=== PATIENT | female | born 1965 | race Caucasian/White ===

== ENCOUNTER → 2019-09-14 11:17 | Outpatient (BNVA) | payer BC, SELFPAY | PROVIDERS: PCP Nurse Practitioner Family; Visit Provider Nurse Practitioner Family | DX: R30.0 Dysuria (principal); M54.5 Low back pain | CPT/HCPCS: 74018; 81003 ==

== ENCOUNTER → 2019-11-27 11:34 | Outpatient (BNVA) | payer BC, SELFPAY | PROVIDERS: PCP Nurse Practitioner Family; Visit Provider Nurse Practitioner Family | DX: U07.1 COVID-19 (principal) | CPT/HCPCS: 87635 ==

== ENCOUNTER → 2020-01-22 11:00 | Outpatient (BNVA) | payer BC, SELFPAY | PROVIDERS: PCP Nurse Practitioner Family | DX: I10 Essential (primary) hypertension (principal); E03.8 Other specified hypothyroidism; F32.1 Major depressive disorder, single episode, moderate | CPT/HCPCS: 80053; 80061; 84443; 85025 ==

== ENCOUNTER → 2021-02-14 18:10 | Outpatient (BNVA) | payer BC, SELFPAY | PROVIDERS: PCP Nurse Practitioner Family; Visit Provider Family Medicine | DX: K21.9 Gastro-esophageal reflux disease without esophagitis (principal); E03.8 Other specified hypothyroidism; I10 Essential (primary) hypertension | CPT/HCPCS: 80053; 80061; 84443; 85025 ==

== ENCOUNTER → 2022-01-04 12:13 | Outpatient (BNVA) | payer BC, SELFPAY | PROVIDERS: PCP Family Medicine; Visit Provider Family Medicine | DX: N39.0 Urinary tract infection, site not specified (principal) | CPT/HCPCS: 81003; 87077; 87086; 87184 ==

== ENCOUNTER → 2022-02-16 10:57 | Outpatient (BNVA) | payer BC, SELFPAY | PROVIDERS: PCP Family Medicine; Visit Provider Family Medicine | DX: R30.0 Dysuria (principal) | CPT/HCPCS: 81000 ==

== ENCOUNTER → 2022-02-25 12:17 | Outpatient (BNVA) | payer BC, SELFPAY | PROVIDERS: PCP Family Medicine; Visit Provider Registered Nurse Neonatal Intensive Care | DX: N39.0 Urinary tract infection, site not specified (principal) | CPT/HCPCS: 81000; 87077; 87086; 87184 ==

== ENCOUNTER → 2022-03-28 16:53 | Outpatient (BNVA) | payer BC, SELFPAY | PROVIDERS: PCP Family Medicine; Visit Provider Nurse Practitioner Family | DX: R30.0 Dysuria (principal); N39.0 Urinary tract infection, site not specified | CPT/HCPCS: 81003; 87077; 87086; 87184 ==

== ENCOUNTER → 2022-07-23 12:06 | Outpatient (BNVA) | payer BC, SELFPAY | PROVIDERS: PCP Family Medicine; Visit Provider Nurse Practitioner Family | DX: N39.0 Urinary tract infection, site not specified (principal); N39.490 Overflow incontinence; E03.8 Other specified hypothyroidism; I10 Essential (primary) hypertension; F32.1 Major depressive disorder, single episode, moderate | CPT/HCPCS: 80053; 80061; 81003; 84443; 85025 ==

== ENCOUNTER → 2022-08-07 12:04 | Outpatient (BNVA) | payer BC, SELFPAY | PROVIDERS: PCP Family Medicine; Visit Provider Nurse Practitioner Family | DX: R39.9 Unspecified symptoms and signs involving the genitourinary system (principal) | CPT/HCPCS: 81003 ==

== ENCOUNTER → 2022-11-08 08:41 | Outpatient (BNVA) | payer BC, SELFPAY | PROVIDERS: PCP Family Medicine; Visit Provider Nurse Practitioner Family | DX: N39.0 Urinary tract infection, site not specified (principal) | CPT/HCPCS: 81000; 81003 ==

== ENCOUNTER → 2022-12-21 10:40 | Outpatient (BNVA) | payer BC, SELFPAY | PROVIDERS: PCP Family Medicine; Visit Provider Nurse Practitioner Family | DX: J02.9 Acute pharyngitis, unspecified (principal) | CPT/HCPCS: 87071; 87880 ==

== ENCOUNTER 2023-03-11 08:22 | Emergency (ER) | payer BC, SELFPAY ==
[2023-03-11 08:32] VITALS: BP 182/114; PULSE 68; TEMP 36.6; O2SAT 99; BMI 42.4
--- NOTE | 2023-03-11 08:51 | W.ED.CHESTPA ---
HPI - Chest Pain General: Chief Complaint: Chest Pain Stated Complaint: pain right side Time Seen by Provider: 03/11/23 08:25 Source: patient Mode of arrival: ambulatory History of Present Illness: 57-year-old female presents emergency room complaining of right flank pain. It began after she bent over to pick something up off the floor is continued throughout the night and worsened this morning exacerbated by moving and improved somewhat by rest. She did states she stumbled a bit manage to catch herself did not really hit anything but felt a straining sensation in her right side when she caught her self as she went down with her right or she did not injure anything else when she fell to seem to exacerbate this right side pain. She denies any dysuria urgency or frequency no hematochezia melena hematemesis coffee-ground emesis no vomiting at all. She did recently recover from a viral gastroenteritis that included nausea vomiting and diarrhea but that has for the most part resolved she is also recently had UTI and has infrequently but has no symptoms at this time Onset (ago): day(s) (1) Pain location: right chest (Lower ribs at the anterior axillary line) Quality: sharp Relieving factors: nothing Associated symptoms: Deny abdominal pain, diaphoresis, dyspnea, fever(s), leg edema, nausea, palpitations, sense of impending doom, syncope or vomiting Review of Systems Const: Denies: fever(s) or diaphoresis Card: Denies: palpitations or syncope Resp: Denies: dyspnea GI: Denies: abdominal pain, nausea or vomiting : Denies: dysuria, urinary frequency or urinary urgency Musc: Denies: neck pain or back pain Skin/Breast: Denies: rash PENDING SALE TO [facility] ED PFSH: Medical History Anxiety Depression GERD (gastroesophageal reflux disease) Hypertension Hypothyroid Obese Osteoarthritis Surgical History Hx of breast augmentation Hx of dilation and curettage Family History Other No pertinent family history Social History Smoking and tobacco/nicotine status: never used tobacco/nicotine Second hand smoke exposure: No Alcohol intake: never Substance/Drug Use: never Adopted: No Lives independently: Yes Household members: children Housing: House Marital status: / Number of children: 2 service: No Current occupational status: employed Current occupation: teacher; [employer] Current gender identity: Female Special jessica needs: No Agree to transfusion: Yes Physical Exam Const: COMMON NORMALS: no acute distress GENERAL APPEARANCE: cooperative and comfortable ORIENTATION/CONSCIOUSNESS: Yes awake, Yes oriented to person, Yes oriented to place and Yes oriented to time HENMT: COMMON NORMALS: normocephalic, atraumatic and hearing grossly normal bilaterally HEAD & SCALP: normocephalic and atraumatic Resp: COMMON NORMALS: normal respiratory effort, No retractions, No use of accessory muscles and clear to auscultation bilaterally AUSCULTATION: clear to auscultation bilaterally Cardio: COMMON NORMALS: regular rate, regular rhythm and No murmurs present (Cardio) RATE: regular rate RHYTHM: regular rhythm GI: COMMON NORMALS: Soft to palpation and No hepatosplenomegaly present AUSCULTATION: Yes normoactive bowel sounds PALPATION: Yes Soft to palpation, No Tenderness to palpation present (GI), No Guarding due to palpation present (GI) and Yes No hepatosplenomegaly present Extremity: COMMON NORMALS: normal to inspection, capillary refill normal, no clubbing, cyanosis or edema, no calf tenderness and no pedal edema Neuro: SENSORIUM/ORIENTATION: Yes oriented to person, Yes oriented to place and Yes oriented to time Skin: COMMON NORMALS: no rashes or lesions noted GENERAL SKIN EXAM: no rashes or lesions noted Course Vital Signs: Vital signs: Vital Signs Temperature 98 F 03/11/23 08:32 Pulse Rate 68 03/11/23 08:32 Blood Pressure 144/90 03/11/23 10:30 Pulse Oximetry 99 03/11/23 08:32 Oxygen Delivery Me thod Room Air 03/11/23 08:32 MDM - Chest Pain Medical Decision Making Labs and imaging and EKG reviewed no acute changes on EKG no fractures no history of significant trauma. Suspect this is musculoskeletal is reproducible with change in position discharged home on tizanidine continue diclofenac previously prescribed Medical Records I reviewed the patient's medical records. Lab Data I reviewed the patient's lab results. 03/11/23 09:18 03/11/23 09:18 Radiology Impressions Ribs X-Ray 03/11/23 09:22 IMPRESSION: No acute findings. Laboratory Results WBC 5.39 10^3/uL (3.29-11.43) 03/11/23 09:18 RBC 3.99 10^6/uL (3.85-5.65) 03/11/23 09:18 Hgb 12.30 g/dL (11.27-16.99) 03/11/23 09:18 Hct 37.6 % (36-47) 03/11/23 09:18 MCV 94.2 fl (85-98) 03/11/23 09:18 MCH 30.8 pg (27-33) 03/11/23 09:18 MCHC 32.7 g/dL (30-55) 03/11/23 09:18 RDW 12.9 % (12.1-15.1) 03/11/23 09:18 Plt Count 256 10^3/cmm (157-399) 03/11/23 09:18 MPV 10.2 fL (7.4-10.4) 03/11/23 09:18 Neut % (Auto) 50.4 % 03/11/23 09:18 Lymph % (Auto) 37.1 % 03/11/23 09:18 [facility] % (Auto) 8.7 % 03/11/23 09:18 Eos % (Auto) 3.2 % 03/11/23 09:18 Baso % (Auto) 0.6 % 03/11/23 09:18 Neut # (Auto) 2.72 10^3/uL (1.8-7.7) 03/11/23 09:18 Lymph # (Auto) 2.0 10^3/uL (0.8-4.8) 03/11/23 09:18 [facility] # (Auto) 0.5 10^3/uL (0.2-0.9) 03/11/23 09:18 Eos # (Auto) 0.2 10^3/uL (0.0-0.8) 03/11/23 09:18 Baso # (Auto) 0.0 10^3/uL (0.0-0.1) 03/11/23 09:18 Nucleated RBC % (auto) 0 % 03/11/23 09:18 Nucleated RBCs # 0.0 /100WBC 03/11/23 09:18 Sodium 138 mmol/L (136-145) 03/11/23 09:18 Potassium 3.5 mmol/L (3.5-5.1) 03/11/23 09:18 Chloride 103 mmol/L (98-107) 03/11/23 09:18 Carbon Dioxide 23 mmol/L (22-29) 03/11/23 09:18 Anion Gap 15.4 (5-19) 03/11/23 09:18 BUN 17 mg/dL (6-20) 03/11/23 09:18 Creatinine 0.9 mg/dL (0.5-0.9) 03/11/23 09:18 GFR Calculation 64.5 mL/min (90-130) L 03/11/23 09:18 Glucose 113 mg/dL (65-115) 03/11/23 09:18 Calculated Osmolality 288 mOsm/kg (285-295) 03/11/23 09:18 Calcium 9.3 mg/dL (8.5-10.5) 03/11/23 09:18 Total Bilirubin 0.4 mg/dL (0.15-1.2) 03/11/23 09:18 AST 42 U/L (0-32) H 03/11/23 09:18 ALT 49 U/L (0-33) H 03/11/23 09:18 Alkaline Phosphatase 105 U/L (35-105) 03/11/23 09:18 Total Protein 7.6 g/dL (6.6-8.7) 03/11/23 09:18 Albumin 4.3 g/dL (3.5-5.2) 03/11/23 09:18 Globulin 3.3 g/dL (1.3-4.6) 03/11/23 09:18 Urine Color Yellow (Yellow) 03/11/23 10:24 Urine Appearance Clear (CLEAR) 03/11/23 10:24 Urine pH 5 (5-7) 03/11/23 10:24 Ur Specific [place] 1.020 (1.005-1.030) 03/11/23 10:24 Urine Protein Trace (Negative) 03/11/23 10:24 Urine Glucose (UA) Norm (Normal) 03/11/23 10:24 Urine Ketones 1+ (Negative) H 03/11/23 10:24 Urine Blood Neg (Negative) 03/11/23 10:24 Urine Nitrate Negative (Negative) 03/11/23 10:24 Urine Bilirubin 1+ (Negative) H 03/11/23 10:24 Urine Urobilinogen 1 mg/dL (Negative) H 03/11/23 10:24 Ur Leukocyte Esterase Negative (Negative) 03/11/23 10:24 Urine RBC Rare /hpf (0-2) 03/11/23 10:24 Urine WBC 5-10 /hpf (0-5) H 03/11/23 10:24 Ur Squamous Epith Cells 5-10 /hpf (0-5) H 03/11/23 10:24 Amorphous Sediment Not Reportable 03/11/23 10:24 Urine Bacteria 1+ /hpf (NONE) H 03/11/23 10:24 Hyaline Casts 5-10 /lpf H 03/11/23 10:24 Urine Mucus 2+ /hpf 03/11/23 10:24 All radiology interpretation(s) finalized by discharge Discharge Plan Discharge Patient Disposition: Home Clinical Impression: Muscle strain Condition: Stable Prescriptions: New tizanidine 4 mg tablet 4 mg PO Q6H PRN (Reason: muscle spasticity) Qty: 20 0RF Rx Instructions: do not exceed 3 doses per 24 hrs No Action brimonidine 0.15 % drops 1 drop ophthalmic (eye) BID ketoconazole 2 % cream 1 applic topical BID Qty: 60 2RF Rx Instructions: Apply twice daily to red scaly areas on face x 4 weeks then once daily prn for flares ketoconazole 2 % shampoo 1 applic topical .2 x weekly Qty: 120 3RF Rx Instructions: Lather into scalp 2 times weekly. Allow to sit on scalp for 5 minutes before rinsing. diclofenac sodium [Voltaren Arthritis Pain] 1 % gel 2 g topical QID Qty: 100 0RF Rx Instructions: apply to knee amoxicillin 875 mg tablet 875 mg PO BID 10 Days Qty: 20 0RF fluconazole 150 mg tablet 150 mg PO Q3D Qty: 2 0RF Rx Instructions: may repeat second dose 72 hrs after first dose if symptoms persist ciprofloxacin HCl [Cipro] 500 mg tablet 500 mg PO BID Qty: 20 0RF levothyroxine 100 mcg tablet See Rx Instructions .ROUTE .COMPLEX Qty: 90 1RF Dose Instruction: TAKE ONE TABLET BY MOUTH EVERY DAY Rx Instructions: TAKE ONE TABLET BY MOUTH EVERY DAY atenolol 50 mg tablet See Rx Instructions .ROUTE .COMPLEX Qty: 90 1RF Dose Instruction: TAKE ONE TABLET BY MOUTH DAILY Rx Instructions: TAKE ONE TABLET BY MOUTH DAILY lisinopril 20 mg tablet See Rx Instructions .ROUTE .COMPLEX Qty: 180 1RF Dose Instruction: TAKE ONE TABLET BY MOUTH TWICE DAILY Rx Instructions: TAKE ONE TABLET BY MOUTH TWICE DAILY escitalopram oxalate 20 mg tablet See Rx Instructions .ROUTE .COMPLEX Qty: 90 1RF Dose Instruction: TAKE ONE TABLET BY MOUTH EVERY DAY Rx Instructions: TAKE ONE TABLET BY MOUTH EVERY DAY diclofenac sodium 75 mg tablet,delayed release (DR/EC) See Rx Instructions .ROUTE .COMPLEX Qty: 60 5RF Dose Instruction: TAKE ONE TABLET BY MOUTH TWICE DAILY NEEDED FOR pain Rx Instructions: TAKE ONE TABLET BY MOUTH TWICE DAILY NEEDED FOR pain nitrofurantoin macrocrystal 100 mg capsule 100 mg PO BID 10 Days Qty: 20 0RF Rx Instructions: must administer with a meal/food Discharge Orders: Discharge ED (Routine); Ordered 03/11/23 Ordered By: Bj Otto Referrals: Syeda Powell FNP [Primary Care Provider] - Patient Instructions: Opioid Safety, Pain Management Activity Restrictions/Additional Instructions: Thank you for choosing [facility] for your healthcare needs today. Please realize this is an emergency room and that we are providing you with a medical screening exam and this may not be complete and all inclusive of all the testing and or work up that you may need to determine your ailment or severity of your illness. It is very important that you follow up as instructed or that you return to the Emergency Department should you have concerns or if your condition changes or worsens in any way. If not improving follow-up with your primary care doctor Coding Level of Care Code ED Recyclable Products Sorter for Dakota Santiago
[2023-03-11 09:10] VITALS: BP 158/85
[2023-03-11] MEDS: ketorolac 60 mg/2 mL INJ IM (09:17)
--- NOTE | 2023-03-11 09:22 | XRR_ITS ---
PROCEDURE INFORMATION: Exam: XR Right Ribs with PA Chest Exam date and time: 03/11/2023 9:34 AM Age: 57 years old Clinical indication: Pain; Other: RT ribs TECHNIQUE: Imaging protocol: Radiologic exam of the right ribs with PA chest. Views: 3 views COMPARISON: CR XR KUB [id number] 09/14/2019 11:29 AM FINDINGS: Lungs: The lung parenchyma is clear. Pleural spaces: No pneumothorax. No pleural effusion. Heart/Mediastinum: The cardiomediastinal silhouette is within normal limits. Bones/joints: Unremarkable. No displaced rib fractures identified. XR/XR ribs RT mn 3V w CXR1V [id number] IMPRESSION: No acute findings.
[2023-03-11 09:25] LABS: Basophils % 0.6 %; Eosinophils # 0.2 10^3/uL (0.0-0.8); Eosinophils % 3.2 %; Hematocrit 37.6 % (36-47); Lymphocytes % 37.1 %; Mean Corpuscular HGB Conc 32.7 g/dL (30-55); Mean Corpuscular Hemoglobin 30.8 pg (27-33); Mean Corpuscular Volume 94.2 fl (85-98); Mean Platelet Volume 10.2 fL (7.4-10.4); Monocytes # 0.5 10^3/uL (0.2-0.9); Monocytes % 8.7 %; Neutrophils # 2.72 10^3/uL (1.8-7.7); Neutrophils % 50.4 %; Nucleated Red Blood Cells % 0 %; Platelet Count 256 10^3/cmm (157-399); Red Blood Count 3.99 10^6/uL (3.85-5.65); Red Cell Distribution Width 12.9 % (12.1-15.1); White Blood Count 5.39 10^3/uL (3.29-11.43)
[2023-03-11 09:42] LABS: Chloride 103 mmol/L (98-107); Potassium 3.5 mmol/L (3.5-5.1); Sodium 138 mmol/L (136-145)
[2023-03-11 09:55] LABS: Alanine Aminotransferase 49 U/L (0-33); Albumin Level 4.3 g/dL (3.5-5.2); Alkaline Phosphatase 105 U/L (35-105); Anion Gap 15.4 (5-19); Aspartate Amino Transferase 42 U/L (0-32); Blood Urea Nitrogen 17 mg/dL (6-20); Calcium 9.3 mg/dL (8.5-10.5); Carbon Dioxide 23 mmol/L (22-29); Globulin 3.3 g/dL (1.3-4.6); Glomerular Filtration Rate 64.5 mL/min (90-130); Glucose 113 mg/dL (65-115); Osmolality Calculated 288 mOsm/kg (285-295); Total Bilirubin 0.4 mg/dL (0.15-1.2); Total Protein 7.6 g/dL (6.6-8.7)
[2023-03-11 10:30] VITALS: BP 144/90
[2023-03-11 10:59] LABS: Add Urine Microscopic? YES; Bilirubin Urine 1+ (Negative); Blood Urine Neg (Negative); Glucose Urine UA Norm (Normal); Ketones Urine 1+ (Negative); Leukocyte Esterase Urine Negative (Negative); Nitrate Urine Negative (Negative); Protein Urine Trace (Negative); Urine Appearance Clear (CLEAR); Urine Color Yellow (Yellow); Urobilinogen Urine 1 mg/dL (Negative); pH Urine 5 (5-7)
[2023-03-11 11:00] LABS: Add Urine Culture? No; Bacteria Urine 1+ /hpf; Mucus Urine 2+ /hpf; RBC Urine RARE /hpf (0-2)
== END 2023-03-11 11:42 | disposition home or self-care (01) ==
PROVIDERS: Emergency Provider Family Medicine; PCP Nurse Practitioner Family
DX: S29.011A Strain of muscle and tendon of front wall of thorax, initial encounter (principal); I10 Essential (primary) hypertension; X50.1XXA Overexertion from prolonged static or awkward postures, initial encounter
CPT/HCPCS: 36415; 71101; 80053; 81001; 85025; 96372; 99284; J1885

== ENCOUNTER → 2023-04-16 11:35 | Outpatient (BNVA) | payer BC, SELFPAY | PROVIDERS: PCP Nurse Practitioner Family; Visit Provider Nurse Practitioner Family | DX: N39.0 Urinary tract infection, site not specified (principal); Z87.440 Personal history of urinary (tract) infections | CPT/HCPCS: 81000; 87077; 87086; 87184 ==

== ENCOUNTER → 2023-07-15 09:26 | Outpatient (BNVA) | payer BC, SELFPAY | PROVIDERS: PCP Nurse Practitioner Family; Visit Provider Nurse Practitioner Family | DX: J02.9 Acute pharyngitis, unspecified (principal) | CPT/HCPCS: 87071; 87880 ==

== ENCOUNTER → 2024-01-21 09:50 | Outpatient (BNVA) | payer BC, SELFPAY | PROVIDERS: PCP Nurse Practitioner Family; Visit Provider Nurse Practitioner Family | DX: I10 Essential (primary) hypertension (principal) | CPT/HCPCS: 80053; 80061; 84443; 85025 ==

== ENCOUNTER 2024-12-26 17:16 | Emergency (ER) | payer BC, SELFPAY ==
[2024-12-26 17:16] VITALS: BP 119/97; PULSE 66; RESP 18; TEMP 36.5; O2SAT 100; BMI 35.7
--- OUTSIDE RECORDS SUMMARY | 2024-12-26 17:19 | XMS_ITS | Patient Health Record ---
Author Organization [facility] Address [address] [place] [address] Care Team Providers Care Instructional Design Consultant Name Role Phone Sherry BROWN Syeda Primary Care Provider Jean Cabrera Unavailable [phone] Ej Anand Unavailable Unavailable Chelita Liang Unavailable [phone] Allergies Allergen (clinical drug ingredient) Drug/Non Drug Allergy documented on EMR Reaction Allergy Type Onset Date Status Substance with sulfonamide structure and antibacterial mechanism of action (substance) sulfa drugs Unknown Drug Allergy Active Reason For Referral No Information Medications Medication SIG (Take, Route, Frequency, Duration) Notes Start Date End Date Status Aspirin 81 81 MG Tablet Delayed Release 1 tablet Orally Once a day *please review for potential update for e-prescription and drug interaction check* Active Atenolol 50 MG Tablet 1 tablet Orally Once a day in the evening Active methylPREDNISolone 4 MG Tablet Therapy Pack as directed Orally 01/09/2024 Active Levothyroxine Sodium 100 MCG Tablet 1 tablet in the morning on an empty stomach Orally Once a day Active Ondansetron 4 MG Tablet Disintegrating 1 tablet on the tongue and allow to dissolve Orally every 6 hrs as needed 01/09/2024 Active Lisinopril 20 MG Tablet 1 tablet Oral Once a day Active Escitalopram Oxalate 20 MG Tablet 1 tablet Orally Once a day Active Latanoprost 0.005 % Emulsion 1 null into affected eye in the evening Ophthalmic Once a day Active Meclizine HCl 25 MG Tablet 1 tablet as needed Orally every 12 hrs 01/09/2024 Active Pepcid 20 MG Tablet 1 tablet at bedtime as needed Orally Once a day Active Immunizations Vaccine Route Administration Date Status Comme nts Flucelvax Trivalent, Syringe 0.5 mL, PF Unknown 024 Refused Social History Tobacco Use: Social History Observation Description Date Details (start date - stop date) Never Smoker NA - NA Social History Depression Screening Social Info Question Answer Notes PHQ-9 Little interest or pleasure in doing thin gs Not at all Feeling down, depressed, or hopeless Not at all Trouble falling or staying asleep, or sleeping t oo much Not at all Feeling tired or having little energy Not at all Poor appetite or overeating Not at all Feeling bad about yourself, or that you are a failure, or have let yourself or your family down Not at all Trouble concentrating on thi ngs, such as reading the newspaper or watching television Not at all Moving or speaking so slowly that other people could have noticed. Or the opposite ? being so fidgety or restless that you have been moving around a lot more than usual Not at all Thoughts that you would be b edd off , or of hurting yourself in some way Not at all Total Score 0 Tobacco Use: Social Info Question Answer Notes Tobacco Control (Standard) Tobacco use: Nonsmoker Additional Details Category Social Info Options Details zzMigrated Social History Drugs/Alcohol: (Alcohol Screen (Audit-C)):Did you have a drink containing alcohol in the past year?: No, Points: 0, Interpretation: Negative ;(Caffeine):Intake: none ; Tobacco Use: (Tobacco Use/Smoking):Are you a:: never smoker ; Section Notes: negative for alcohol negative for caffeine PHQ9-01/09/24 PHQ9 negative for alcohol negative for caffeine Problems Problem Type SNOMED Code ICD Code Onset Dates Problem Status W/U Status Risk Notes Problem Palpitations (22221014) Palpitations (R00.2) Active confirmed [id number] nomed Description:P alpitations Problem Ventricular premature depolarization (729601577) Ventricular premature depolarization (I49.3) Active confirmed [id number] nomed Description:V entricular premature complex Problem Essential hypertension (29361254) Essential primary hypertension (I10) Active confirmed [id number] nomed Description:E ssential hypertension Vital Signs Heart Rate 76 /min 01/09/2024 Lying BP: 124/7 0, Sitting BP: 122/76, Standing BP: 118/72 Temperature 98.2 degrees Fahrenheit 01/09/2024 Lyin g BP: 124/70, Sitting BP: 122/76, Standing BP: 118/72 Respiratory Rate 20 /min 01/09/2024 Lying BP: 1 24/70, Sitting BP: 122/76, Standing BP: 118/72 Oximetry 97 % 01/09/2024 Lying BP: 124/7 0, Sitting BP: 122/76, Standing BP: 118/72 Blood pressure diastolic 76 mm Hg 01/09/2024 Lyi ng BP: 124/70, Sitting BP: 122/76, Standing BP: 118/72 Weight-kg 117.03 kg 01/09/2024 Lying BP: 124/7 0, Sitting BP: 122/76, Standing BP: 118/72 Height 66 in 01/09/2024 Lying BP: 124/7 0, Sitting BP: 122/76, Standing BP: 118/72 Blood pressure systolic 124 mm Hg 01/09/2024 Lyin g BP: 124/70, Sitting BP: 122/76, Standing BP: 118/72 Weight 258 lbs 01/09/2024 Lying BP: 124/7 0, Sitting BP: 122/76, Standing BP: 118/72 BMI 41.64 kg/m2 01/09/2024 Lying BP: 124/7 0, Sitting BP: 122/76, Standing BP: 118/72 Encounters Encounter Location Date Provider Diagnosis [facility] Office [address] [place] [id number] 01/09/2024 Chelita Liang Dizziness R42 ; Nausea R11.0 ; Depression screen Z13.31 ; Encounter for immunization Z23 and Immunization not carried out because of patient refusal Z28.21 Assessments Encounter Date Diagnosis (ICD Code) Assessment Notes Treatment Notes Treatment Clinical Notes Section Notes 01/09/2024 Nausea (ICD-10 - R11.0) 01/09/2024 Dizziness (ICD-10 - R42) Recheck next week here or with PCP. 01/09/2024 Depression screen (ICD-10 - Z13.31) 01/09/2024 Encounter for immunization (ICD-10 - Z23) 01/09/2024 Immunization not carried out because of patient refusal (ICD-10 - Z28.21) Plan Of Treatment No Information Insurance Providers Payer Name Payer Address Payer Phone Subscriber Number Group Number Insured Name Patient Relationship to Insured Coverage Start Date Coverage End Date [facility] [employer] [address] [place] [phone] [id number] LIVIA NEWMAN Self - patient is the insured 0 Medications Administered Medication Instructions Date of Administration Dosage Notes Ondansetron HCl 01/09/2024 4 mg [id number] Patient tolerated well. Medical (General) History Medical History History ICD Code Hypertension Thyroid Surgical History Surgery Date(Month/Year) D&C Breast Reduction
--- OUTSIDE RECORDS SUMMARY | 2024-12-26 17:19 | XMS_ITS | Clinical Summary ---
Author Organization [facility] Address [address] [place] [address] Phone Care Team Providers Care Rfid Specialist Name Role Phone Unavailable Primary Care Provider Unavailabl e Social History Tobacco Use Types Packs/Day Years Used Date Smoking Tobacco: Never Assessed Comments Unknown Sex and Gender Information Value Date Recorded Sex Assigned at Not on file Legal Sex Female 8:39 AM [employer] Gender Identity Not on file Sexual Orientation Not on file Plan of Treatment Health Maintenance Due Date Last Done Comments Colonoscopy Every 6 Months 1965 Colorectal Cancer Screening Annual FOBT/FIT Test 03/27 Colorectal Cancer Screening Cologuard 1965 Colorectal Cancer Screening Flex Sigmoidoscopy 966 Annual Depression Screening 1976 Annual Physical 1983 Hepatitis C Antibody Screen 1983 DTap/Tdap/Td Vaccines (1 - Tdap) 1984 Cervical Cancer Screening 1986 Mammogram 2005 Colorectal CA Screen 10 Year Colonoscopy 2010 Colorectal Cancer Screening 2010 Pneumococcal Vaccine Age 50+ (1 of 1 - PCV) 2015 Zoster Vaccine (Shingles) (1 of 2) 2015 Flu Vaccine (#1) 11/16/2024 Influenza Vaccine 11/16/2024 Insurance [facility]
--- NOTE | 2024-12-26 17:26 | CTR_ITS ---
PROCEDURE INFORMATION: Exam: CT Abdomen And Pelvis With Contrast Exam date and time: 12/26/2024 6:05 PM Age: 59 years old Clinical indication: Abdominal pain; Generalized; Additional info: Lower abd pain, profuse diarrhea TECHNIQUE: Imaging protocol: Computed tomography of the abdomen and pelvis with contrast. Radiation optimization: All CT scans at this facility use at least one of these dose optimization techniques: automated exposure control; mA and/or kV adjustment per patient size (includes targeted exams where dose is matched to clinical indication); or iterative reconstruction. Contrast material: OMNIPAQUE 350; Contrast volume: 100 ml; Contrast route: INTRAVENOUS (IV); COMPARISON: CR XR KUB [id number] 09/14/2019 11:29 AM RADIATION DOSE METRICS: Total DLP (mGy-cm): 931.17 FINDINGS: Diaphragm: Mild hiatal hernia. Liver: Normal. No mass. Gallbladder and biliary ducts: Normal. No calcified stones. No ductal dilation. Pancreas: Normal. No ductal dilation. Spleen: Normal. No splenomegaly. Adrenal glands: Normal. No mass. Kidneys and ureters: Normal. No hydronephrosis. Stomach and bowel: Fluid attenuation luminal material within several loops of small bowel and colon, may be related to ingested material although can not exclude mild enteritis/colitis or diarrhea related process. Appendix: No evidence of appendicitis. Intraperitoneal space: Unremarkable. No free air. No significant fluid collection. Vasculature: Aortic atherosclerosis. Lymph nodes: Unremarkable. No enlarged lymph nodes. Urinary bladder: Unremarkable as visualized. Reproductive: Unremarkable as visualized. Bones/joints: Mild degenerative changes of the lumbar vertebral bodies. Soft tissues: Unremarkable. Other findings: Atrophic gynecologic organs. CT/CT abdomen pelvis w con* [id number] IMPRESSION: Fluid attenuation luminal material within several loops of small bowel and colon, may be related to ingested material although can not exclude mild enteritis/colitis or diarrhea related process.
[2024-12-26 17:35] LABS: Hematocrit 40.6 % (36-47); Hemoglobin 13.50 g/dL (11.27-16.99); Mean Corpuscular HGB Conc 33.3 g/dL (30-55); Mean Corpuscular Hemoglobin 30.3 pg (27-33); Mean Corpuscular Volume 91.2 fl (85-98); Nucleated Red Blood Cells % 0 %; Platelet Count 285 10^3/cmm (157-399); Red Blood Count 4.45 10^6/uL (3.85-5.65); White Blood Count 9.51 10^3/uL (3.29-11.43)
[2024-12-26 18:04] LABS: Alanine Aminotransferase 12 U/L (0-33); Albumin Level 4.2 g/dL (3.5-5.2); Alkaline Phosphatase 94 U/L (35-105); Anion Gap 20.6 (5-19); Aspartate Amino Transferase 18 U/L (0-32); Blood Urea Nitrogen 16 mg/dL (6-20); Calcium 9.5 mg/dL (8.5-10.5); Carbon Dioxide 19 mmol/L (22-29); Chloride 103 mmol/L (98-107); Creatinine Clr Calc Pharmacy 77.7844; Globulin 3.5 g/dL (1.3-4.6); Glucose 129 mg/dL (65-115); Lipase 30 U/L (13-60); Osmolality Calculated 291 mOsm/kg (285-295); Potassium 3.6 mmol/L (3.5-5.1); Sodium 139 mmol/L (136-145); Thyroid Stimulating Hormone 1.51 uIU/mL (0.27-4.20); Total Protein 7.7 g/dL (6.6-8.7)
[2024-12-26] MEDS: iohexol 350 mg/mL 500 mL Btl (per mL) IV (18:11)
[2024-12-26 18:33] LABS: Glucose Urine UA Norm (Normal); Nitrate Urine Positive (Negative); Specific Gravity, Urine 1.020 (1.005-1.030)
[2024-12-26 18:34] LABS: Add Urine Microscopic? YES
[2024-12-26 18:35] VITALS: RESP 17; O2SAT 95
[2024-12-26] MEDS: fentaNYL 50 mcg/mL INJ 2mL IVP (18:35)
[2024-12-26] MEDS: metoclopramide 5 mg/mL SDV 2 mL 10 MG IVP (18:36)
--- NOTE | 2024-12-26 18:54 | W.ED.ABDPA2 ---
Documented by User: SHAKILA Rodríguez 12/26/24 21:02 HPI - Abdominal Pain General: Chief Complaint: Abdominal Pain Stated Complaint: ABD PAIN Source: patient and EMS Mode of arrival: EMS Limitations: no limitations History of Present Illness: Patient is a 59-year-old female who presents the emergency department by ambulance due to lower abdominal pain beginning suddenly this afternoon. Onset is at 1400, states that she had onset of the pain with weakness while driving, to where she had to supervisor [employer] to the side of the road. She called ambulance and states that about that time she started losing control of her bowels and starting having profuse diarrhea. Reporting the pain is an 8/10, cramping pain. EMS gave 4 mg of Zofran prehospital. She has a history of anxiety, hypertension, and hypothyroidism. She does note to me that she has similar episodes like this in the past over the last few years, but has never been this severe. She has never seen GI or received any colonoscopy of any kind, but does note significant family history of similar conditions, namely Crohn's disease. She has no history of previous abdominal surgeries. She does note feeling nauseous and having 1 episode of vomiting. Here in the ED she continues to have diarrhea. Describes the pain as cramping. Vitals are unremarkable at this time. No chest pain or shortness of breath. No fevers or chills. Denies eating any exotic foods prior to onset of symptoms. She denies recent antibiotic use. MD elicited complaint: abdominal pain Onset (ago): hour(s) Pain Consistency: constant Location: RLQ and LLQ Severity: similar to previous episodes Quality: cramping Radiation: none Associated Symptoms: Reports GI cramping, diarrhea, nausea and vomiting; Denies bloating, chills, constipation, dysuria, fever(s) and hematochezia Related Data Home Medications ?Medication ?Instructions ?Recorded ?Confirmed brimonidine 0.15 % eye drops 1 drop ophthalmic (eye) BID 04/29/19 07/30/24 Previous Rx's ?Medication ?Instructions ?Recorded diclofenac sodium 1 % topical gel 2 g topical QID #100 grams 12/28/21 (Voltaren Arthritis Pain) atenolol 50 mg tablet See Rx Instructions .Route 01/21/24 .COMPLEX #90 tabs lisinopril 20 mg tablet See Rx Instructions .Route 01/21/24 .COMPLEX #180 tabs escitalopram oxalate 20 mg tablet See Rx Instructions .Route 09/22/24 .COMPLEX #90 tabs levothyroxine 100 mcg tablet See Rx Instructions .Route 09/22/24 .COMPLEX #90 tabs cefdinir 300 mg capsule 300 mg PO BID 7 days #14 caps 12/26/24 ondansetron 4 mg disintegrating 4 mg PO TID PRN nausea and 12/26/24 tablet vomiting #30 tabs Allergies Allergy/AdvReac Type Severity Reaction Status Date / Time Sulfa (Sulfonamide Allergy ALGY-Rash Verified 01/21/24 08:26 Antibiotics) Review of Systems General: Reports: 10 or more systems reviewed and unremarkable except in HPI and below Const: Reports: fatigue and malaise; Denies: fever(s), chills, change in appetite, change in weight or diaphoresis ENMT: Denies: throat pain or hoarseness Card: Denies: chest pain, palpitations or lightheadedness Resp: Denies: dyspnea, productive cough or wheezing GI: Reports: abdominal pain, nausea, vomiting, diarrhea and GI cramping; Denies: constipation, bloating or hematochezia : Denies: flank pain, difficulty voiding, dysuria, urinary frequency or urinary urgency Musc: Denies: neck pain or back pain Skin/Breast: Denies: rash or new lesions Neuro: Reports: weakness in extremities; Denies: headache(s) or dizziness PFSH ED PFSH: Medical History Depression Anxiety Hypertension GERD (gastroesophageal reflux disease) Osteoarthritis Hypothyroid Obese Surgical History Hx of breast augmentation Hx of dilation and curettage Family History Other No pertinent family history Social History Smoking and tobacco/nicotine status: never used tobacco/nicotine Second hand smoke exposure: No Alcohol intake: never Substance/Drug Use: never Adopted: No Lives independently: Yes Household members: children Housing: House Marital status: / Number of children: 2 service: No Current occupational status: employed Current occupation: teacher; [employer] Current gender identity: Female Special jessica needs: No Agree to transfusion: Yes Physical Exam Const: COMMON NORMALS: no acute distress, patient oriented x3, no limitations, healthy appearing, alert and well nourished GENERAL APPEARANCE: cooperative and comfortable NUTRITIONAL APPEARANCE: obese ORIENTATION/CONSCIOUSNESS: Yes awake Neck/C-Spine: COMMON NORMALS: full ROM, supple and no meningeal signs Resp: COMMON NORMALS: normal respiratory effort, No retractions, No use of accessory muscles and clear to auscultation bilaterally AUSCULTATION: clear to auscultation bilaterally, no crackles, no rales, no rhonchi and no wheezes Cardio: COMMON NORMALS: regular rate, regular rhythm, No gallops present (Cardio), No clicks present (Cardio), No murmurs present (Cardio) and No rub (Cardio) RATE: regular rate RHYTHM: regular rhythm GI: COMMON NORMALS: Soft to palpation, No hepatosplenomegaly present and no masses INSPECTION: Yes central obesity AUSCULTATION: Yes Hyperactive bowel sounds present PALPATION: Yes Soft to palpation, Yes Tenderness to palpation present (GI) (Mild lower abdominal tenderness to palpation), No Guarding due to palpation present (GI), No Rigid due to palpation and Yes No hepatosplenomegaly present RECTAL EXAM: deferred Extremity: COMMON NORMALS: normal to inspection and full ROM Neuro: COMMON NORMALS: patient oriented x3, moves all extremities, no focal motor deficits and no sensory deficits noted SENSORIUM/ORIENTATION: Yes alert MENINGEAL SIGNS: Yes no meningeal signs Psych: COMMON NORMALS: mental status grossly normal, cooperative and speech normal SPEECH: Yes normal speech Skin: COMMON NORMALS: no rashes or lesions noted GENERAL SKIN EXAM: no rashes or lesions noted Course Vital Signs: Vital signs: Vital Signs Temperature 97.7 F 12/26/24 17:16 Pulse Rate 78 12/26/24 20:12 Respiratory Rate 17 12/26/24 18:35 Blood Pressure 135/72 12/26/24 20:12 Pulse Oximetry 99 12/26/24 20:12 Oxygen Delivery Me thod Room Air 12/26/24 17:16 MDM - Abdominal Pain Medical Decision Making Patient presented by ambulance for sudden onset lower abdominal pain associated with frequent diarrhea that was uncontrollable. Here in the emergency department when she arrived she did have a couple of episodes of this, and she tells me she has had this in the past but never this severe or lasting for as long. She has never followed with gastroenterology or had colonoscopy done. Does report strong family history of gastrointestinal malabsorption syndromes, Crohn's disease, etc. She did appear little clinically dehydrated. Vitals have been stable however at the ED stay, overall nontoxic-appearing. No significant reproducible tenderness palpation of the abdomen on exam. Lab work is unremarkable aside from urinalysis showing signs of a mild UTI. No leukocytosis, thyroid was within normal limits. No significant electrolyte derangement on metabolic panel. Attempted to obtain stool for C. difficile sample however patient began to pass fully formed stools and has no recent antibiotic usage so making this very unlikely. CT abdomen pelvis showing signs of colitis. She feels significant improvement after IV fluids and nausea medications here in the ED, she will be referred to gastroenterology for further evaluation and there is no acute process evident at this time requiring surgical intervention or admission to the hospital. States that she is ready to go home, she is given general return precautions. Patient originally seen by Mr. Jonh PA-C, agree with his history, evaluation, and management. Lab Data 12/26/24 17:22 12/26/24 17:22 Labs/Radiology: Radiology Impressions Abdomen/Pelvis CT 12/26/24 17:26 IMPRESSION: Fluid attenuation luminal material within several loops of small bowel and colon, may be related to ingested material although can not exclude mild enteritis/colitis or diarrhea related process. Laboratory Results WBC 9.51 10^3/uL (3.29-11.43) 12/26/24 17: RBC 4.45 10^6/uL (3.85-5.65) 12/26/24 17:22 Hgb 13.50 g/dL (11.27-16.99) 12/26/24 17: Hct 40.6 % (36-47) 12/26/24 17:22 MCV 91.2 fl (85-98) 12/26/24 17:22 MCH 30.3 pg (27-33) 12/26/24 17: MCHC 33.3 g/dL (30-55) 12/26/24 17: RDW 13.0 % (12.1-15.1) 12/26/24 17:22 Plt Count 285 10^3/cmm (157-399) 12/26/24 17:22 MPV 10.7 fL (7.4-10.4) H 12/26/24 17:22 Neut % (Auto) 78.1 % 12/26/24 17:22 Lymph % (Auto) 16.1 % 12/26/24 17:22 [place] % (Auto) 3.7 % 12/26/24 17:22 Eos % (Auto) 1.1 % 12/26/24 17:22 Baso % (Auto) 0.6 % 12/26/24 17:22 Neut # (Auto) 7.43 10^3/uL (1.8-7.7) 12/26/24 17:22 Lymph # (Auto) 1.5 10^3/uL (0.8-4.8) 12/26/24 17:22 [place] # (Auto) 0.4 10^3/uL (0.2-0.9) 12/26/24 17:22 Eos # (Auto) 0.1 10^3/uL (0.0-0.8) 12/26/24 17:22 Baso # (Auto) 0.1 10^3/uL (0.0-0.1) 12/26/24 17: Nucleated RBC % (auto) 0 % 12/26/24 17: Nucleated RBCs # 0.0 /100WBC 12/26/24 17:22 Sodium 139 mmol/L (136-145) 12/26/24 17:22 Potassium 3.6 mmol/L (3.5-5.1) 12/26/24 17:22 Chloride 103 mmol/L (98-107) 12/26/24 17:22 Carbon Dioxide 19 mmol/L (22-29) L 12/26/24 17:22 Anion Gap 20.6 (5-19) H 12/26/24 17:22 BUN 16 mg/dL (6-20) 12/26/24 17:22 Creatinine 0.9 mg/dL (0.5-0.9) 12/26/24 17:22 GFR Calculation 64.1 mL/min (90-130) L 12/26/24 17:22 Glucose 129 mg/dL (65-115) H 12/26/24 17:22 Calculated Osmolality 291 mOsm/kg (285-295) 12/26/24 17:22 Calcium 9.5 mg/dL (8.5-10.5) 12/26/24 17:22 Total Bilirubin 0.7 mg/dL (0.15-1.2) 12/26/24 17:22 AST 18 U/L (0-32) 12/26/24 17:22 ALT 12 U/L (0-33) 12/26/24 17:22 Alkaline Phosphatase 94 U/L (35-105) 12/26/24 17:22 Total Protein 7.7 g/dL (6.6-8.7) 12/26/24 17:22 Albumin 4.2 g/dL (3.5-5.2) 12/26/24 17:22 Globulin 3.5 g/dL (1.3-4.6) 12/26/24 17:22 Lipase 30 U/L (13-60) 12/26/24 17:22 TSH 1.51 uIU/mL (0.27-4.20) 12/26/24 17:22 Urine Color Dark yellow (Yellow) A 12/26/24 18:10 Urine Appearance Clear (CLEAR) 12/26/24 18:10 Urine pH 5 (5-7) 12/26/24 18:10 Ur Specific [place] 1.020 (1.005-1.030) 12/26/24 18:10 Urine Protein 1+ (Negative) H 12/26/24 18:10 Urine Glucose (UA) Norm (Normal) 12/26/24 18:10 Urine Ketones 2+ (Negative) H 12/26/24 18:10 Urine Blood 3+ (Negative) H 12/26/24 18:10 Urine Nitrate Positive (Negative) A 12/26/24 18:10 Urine Bilirubin 1+ (Negative) H 12/26/24 18:10 Urine Urobilinogen 4+ mg/dL (Negative) H 12/26/24 18:10 Ur Leukocyte Esterase 1+ (Negative) H 12/26/24 18:10 Urine RBC 5-10 /hpf (0-2) H 12/26/24 18:10 Urine WBC 15-25 /hpf (0-5) H 12/26/24 18:10 Ur Squamous Epith Cells 5-10 /hpf (0-5) H 12/26/24 18:10 Amorphous Sediment Not Reportable 12/26/24 18:10 Urine Bacteria 2+ /hpf (NONE) H 12/26/24 18:10 Urine Mucus 1+ /hpf 12/26/24 18:10 C. difficile (PCR) Cancelled 12/26/24 18:10 C. difficile (PCR) Cancelled 12/26/24 18:10 All radiology interpretation(s) finalized by discharge Discharge Plan Discharge Patient Disposition: Home Clinical Impression: Gastroenteritis Urinary tract infection Qualifiers: Urinary tract infection type: acute cystitis Hematuria presence: without hematuria Qualified Code(s): N30.00 - Acute cystitis without hematuria Condition: Stable Prescriptions: New ondansetron 4 mg tablet,disintegrating 4 mg PO TID PRN (Reason: nausea and vomiting) Qty: 30 0RF cefdinir 300 mg capsule 300 mg PO BID 7 Days Qty: 14 0RF Discontinued amoxicillin-pot clavulanate 875-125 mg tablet 1 tab PO BID Qty: 20 0RF No Action brimonidine 0.15 % drops 1 drop ophthalmic (eye) BID diclofenac sodium [Voltaren Arthritis Pain] 1 % gel 2 g topical QID Qty: 100 0RF Rx Instructions: apply to knee atenolol 50 mg tablet See Rx Instructions .ROUTE .COMPLEX Qty: 90 3RF Dose Instruction: TAKE ONE TABLET BY MOUTH DAILY Rx Instructions: TAKE ONE TABLET BY MOUTH DAILY lisinopril 20 mg tablet See Rx Instructions .ROUTE .COMPLEX Qty: 180 3RF Dose Instruction: TAKE ONE TABLET BY MOUTH TWICE DAILY Rx Instructions: TAKE ONE TABLET BY MOUTH TWICE DAILY levothyroxine 100 mcg tablet See Rx Instructions .ROUTE .COMPLEX Qty: 90 0RF Dose Instruction: TAKE ONE TABLET BY MOUTH EVERY DAY Rx Instructions: TAKE ONE TABLET BY MOUTH EVERY DAY escitalopram oxalate 20 mg tablet See Rx Instructions .ROUTE .COMPLEX Qty: 90 0RF Dose Instruction: TAKE ONE TABLET BY MOUTH EVERY DAY Rx Instructions: TAKE ONE TABLET BY MOUTH EVERY DAY Discharge Orders: Discharge ED (Routine); Ordered 12/26/24 Ordered By: Javon Borja Referrals: Syeda Powell FNP [Primary Care Provider, Family Practice] Patient Instructions: Patient Portal & Cliff Instructions Activity Restrictions/Additional Instructions: Gastroenteritis Discharge Instructions Diagnosis and Next Steps: You have been diagnosed with gastroenteritis (stomach infection causing diarrhea and vomiting) and a urinary tract infection (UTI). You will be referred to a certified ophthalmic assistant for further evaluation. Medications: - Ondansetron: Take as prescribed to help with nausea and vomiting. Use only as needed for symptoms. Do not exceed the recommended dose. Ondansetron can help you keep fluids down, but may cause mild diarrhea in some cases. - Cefdinir: Take one tablet twice daily for seven days to treat your UTI. Finish the entire course, even if you start feeling better. Hydration: - Drink plenty of fluids. Water, clear broths, and oral rehydration solutions are best. Small, frequent sips are easier to tolerate if you feel nauseated. - Avoid caffeine, alcohol, and sugary drinks, which can worsen dehydration. Diet: - Start with bland foods (such as bananas, rice, applesauce, toast) as tolerated. - Avoid dairy, fatty, or spicy foods until you feel better. Rest: - Get plenty of rest while you recover. Prevention: - Wash your hands often, especially after using the bathroom and before eating. - Avoid preparing food for others until symptoms resolve. When to Seek Medical Attention: - Signs of dehydration: dry mouth, little or no urine, dizziness, or feeling very weak. - Blood in stool or urine. - Severe abdominal pain, persistent vomiting, or high fever. - If symptoms worsen or do not improve after a few days. Follow-Up: - Attend your gastroenterology appointment as scheduled. - If you have any questions about your medications or symptoms, contact your healthcare provider. Important: Take all medications exactly as prescribed. Do not use anti-diarrheal medicines unless directed by your doctor, as they are not always safe for all types of diarrhea. Wishing you a safe and speedy recovery. Print Language: Georgian Coding Level of Care Code ED Debate Director for [facility] Fwd Documented by User: Madhav Blount DO 12/26/24 21:18 HPI - Abdominal Pain General: Chief Complaint: Abdominal Pain Stated Complaint: ABD PAIN Related Data Home Medications ?Medication ?Instructions ?Recorded ?Confirmed brimonidine 0.15 % eye drops 1 drop ophthalmic (eye) BID 04/29/19 07/30/24 Previous Rx's ?Medication ?Instructions ?Recorded diclofenac sodium 1 % topical gel 2 g topical QID #100 grams 12/28/21 (Voltaren Arthritis Pain) atenolol 50 mg tablet See Rx Instructions .Route 01/21/24 .COMPLEX #90 tabs lisinopril 20 mg tablet See Rx Instructions .Route 01/21/24 .COMPLEX #180 tabs escitalopram oxalate 20 mg tablet See Rx Instructions .Route 09/22/24 .COMPLEX #90 tabs levothyroxine 100 mcg tablet See Rx Instructions .Route 09/22/24 .COMPLEX #90 tabs cefdinir 300 mg capsule 300 mg PO BID 7 days #14 caps 12/26/24 ondansetron 4 mg disintegrating 4 mg PO TID PRN nausea and 12/26/24 tablet vomiting #30 tabs Allergies Allergy/AdvReac Type Severity Reaction Status Date / Time Sulfa (Sulfonamide Allergy ALGY-Rash Verified 01/21/24 08:26 Antibiotics) PFSH ED PFSH: Medical History Depression Anxiety Hypertension GERD (gastroesophageal reflux disease) Osteoarthritis Hypothyroid Obese Surgical History Hx of breast augmentation Hx of dilation and curettage Family History Other No pertinent family history Social History Smoking and tobacco/nicotine status: never used tobacco/nicotine Second hand smoke exposure: No Alcohol intake: never Substance/Drug Use: never Adopted: No Lives independently: Yes Household members: children Housing: House Marital status: / Number of children: 2 service: No Current occupational status: employed Current occupation: teacher; [employer]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 Jonh PA-C, agree with his history, evaluation, and management. Lab Data 12/26/24 17:22 12/26/24 17:22 Labs/Radiology: Radiology Impressions Abdomen/Pelvis CT 12/26/24 17:26 IMPRESSION: Fluid attenuation luminal material within several loops of small bowel and colon, may be related to ingested material although can not exclude mild enteritis/colitis or diarrhea related process. Laboratory Results WBC 9.51 10^3/uL (3.29-11.43) 12/26/24 17:22 RBC 4.45 10^6/uL (3.85-5.65) 12/26/24 17:22 Hgb 13.50 g/dL (11.27-16.99) 12/26/24 17:22 Hct 40.6 % (36-47) 12/26/24 17:22 MCV 91.2 fl (85-98) 12/26/24 17:22 MCH 30.3 pg (27-33) 12/26/24 17:22 MCHC 33.3 g/dL (30-55) 12/26/24 17:22 RDW 13.0 % (12.1-15.1) 12/26/24 17:22 Plt Count 285 10^3/cmm (157-399) 12/26/24 17:22 MPV 10.7 fL (7.4-10.4) H 12/26/24 17:22 Neut % (Auto) 78.1 % 12/26/24 17:22 Lymph % (Auto) 16.1 % 12/26/24 17:22 [place] % (Auto) 3.7 % 12/26/24 17:22 Eos % (Auto) 1.1 % 12/26/24 17:22 Baso % (Auto) 0.6 % 12/26/24 17:22 Neut # (Auto) 7.43 10^3/uL (1.8-7.7) 12/26/24 17:22 Lymph # (Auto) 1.5 10^3/uL (0.8-4.8) 12/26/24 17:22 [place] # (Auto) 0.4 10^3/uL (0.2-0.9) 12/26/24 17:22 Eos # (Auto) 0.1 10^3/uL (0.0-0.8) 12/26/24 17:22 Baso # (Auto) 0.1 10^3/uL (0.0-0.1) 12/26/24 17:22 Nucleated RBC % (auto) 0 % 12/26/24 17:22 Nucleated RBCs # 0.0 /100WBC 12/26/24 17:22 Sodium 139 mmol/L (136-145) 12/26/24 17:22 Potassium 3.6 mmol/L (3.5-5.1) 12/26/24 17:22 Chloride 103 mmol/L (98-107) 12/26/24 17:22 Carbon Dioxide 19 mmol/L (22-29) L 12/26/24 17:22 Anion Gap 20.6 (5-19) H 12/26/24 17:22 BUN 16 mg/dL (6-20) 12/26/24 17:22 Creatinine 0.9 mg/dL (0.5-0.9) 12/26/24 17:22 GFR Calculation 64.1 mL/min (90-130) L 12/26/24 17:22 Glucose 129 mg/dL (65-115) H 12/26/24 17:22 Calculated Osmolality 291 mOsm/kg (285-295) 12/26/24 17:22 Calcium 9.5 mg/dL (8.5-10.5) 12/26/24 17:22 Total Bilirubin 0.7 mg/dL (0.15-1.2) 12/26/24 17:22 AST 18 U/L (0-32) 12/26/24 17:22 ALT 12 U/L (0-33) 12/26/24 17:22 Alkaline Phosphatase 94 U/L (35-105) 12/26/24 17:22 Total Protein 7.7 g/dL (6.6-8.7) 12/26/24 17:22 Albumin 4.2 g/dL (3.5-5.2) 12/26/24 17:22 Globulin 3.5 g/dL (1.3-4.6) 12/26/24 17:22 Lipase 30 U/L (13-60) 12/26/24 17:22 TSH 1.51 uIU/mL (0.27-4.20) 12/26/24 17:22 Urine Color Dark yellow (Yellow) A 12/26/24 18:10 Urine Appearance Clear (CLEAR) 12/26/24 18:10 Urine pH 5 (5-7) 12/26/24 18:10 Ur Specific [place] 1.020 (1.005-1.030) 12/26/24 18:10 Urine Protein 1+ (Negative) H 12/26/24 18:10 Urine Glucose (UA) Norm (Normal) 12/26/24 18:10 Urine Ketones 2+ (Negative) H 12/26/24 18:10 Urine Blood 3+ (Negative) H 12/26/24 18:10 Urine Nitrate Positive (Negative) A 12/26/24 18:10 Urine Bilirubin 1+ (Negative) H 12/26/24 18:10 Urine Urobilinogen 4+ mg/dL (Negative) H 12/26/24 18:10 Ur Leukocyte Esterase 1+ (Negative) H 12/26/24 18:10 Urine RBC 5-10 /hpf (0-2) H 12/26/24 18:10 Urine WBC 15-25 /hpf (0-5) H 12/26/24 18:10 Ur Squamous Epith Cells 5-10 /hpf (0-5) H 12/26/24 18:10 Amorphous Sediment Not Reportable 12/26/24 18:10 Urine Bacteria 2+ /hpf (NONE) H 12/26/24 18:10 Urine Mucus 1+ /hpf 12/26/24 18:10 C. difficile (PCR) Cancelled 12/26/24 18:10 C. difficile (PCR) Cancelled 12/26/24 18:10 Discharge Plan Discharge Patient Disposition: Home Clinical Impression: Gastroenteritis Urinary tract infection Qualifiers: Urinary tract infection type: acute cystitis Hematuria presence: without hematuria Qualified Code(s): N30.00 - Acute cystitis without hematuria Condition: Stable Prescriptions: New ondansetron 4 mg tablet,disintegrating 4 mg PO TID PRN (Reason: nausea and vomiting) Qty: 30 0RF cefdinir 300 mg capsule 300 mg PO BID 7 Days Qty: 14 0RF Discontinued amoxicillin-pot clavulanate 875-125 mg tablet 1 tab PO BID Qty: 20 0RF No Action brimonidine 0.15 % drops 1 drop ophthalmic (eye) BID diclofenac sodium [Voltaren Arthritis Pain] 1 % gel 2 g topical QID Qty: 100 0RF Rx Instructions: apply to knee atenolol 50 mg tablet See Rx Instructions .ROUTE .COMPLEX Qty: 90 3RF Dose Instruction: TAKE ONE TABLET BY MOUTH DAILY Rx Instructions: TAKE ONE TABLET BY MOUTH DAILY lisinopril 20 mg tablet See Rx Instructions .ROUTE .COMPLEX Qty: 180 3RF Dose Instruction: TAKE ONE TABLET BY MOUTH TWICE DAILY Rx Instructions: TAKE ONE TABLET BY MOUTH TWICE DAILY levothyroxine 100 mcg tablet See Rx Instructions .ROUTE .COMPLEX Qty: 90 0RF Dose Instruction: TAKE ONE TABLET BY MOUTH EVERY DAY Rx Instructions: TAKE ONE TABLET BY MOUTH EVERY DAY escitalopram oxalate 20 mg tablet See Rx Instructions .ROUTE .COMPLEX Qty: 90 0RF Dose Instruction: TAKE ONE TABLET BY MOUTH EVERY DAY Rx Instructions: TAKE ONE TABLET BY MOUTH EVERY DAY Discharge Orders: Discharge ED (Routine); Ordered 12/26/24 Ordered By: Javon Borja Referrals: Syeda Powell FNP [Primary Care Provider, Family Practice] Patient Instructions: Patient Portal & [facility] Instructions Activity Restrictions/Additional Instructions: Gastroenteritis Discharge Instructions Diagnosis and Next Steps: You have been diagnosed with gastroenteritis (stomach infection causing diarrhea and vomiting) and a urinary tract infection (UTI). You will be referred to a certified ophthalmic assistant for further evaluation. Medications: - Ondansetron: Take as prescribed to help with nausea and vomiting. Use only as needed for symptoms. Do not exceed the recommended dose. Ondansetron can help you keep fluids down, but may cause mild diarrhea in some cases. - Cefdinir: Take one tablet twice daily for seven days to treat your UTI. Finish the entire course, even if you start feeling better. Hydration: - Drink plenty of fluids. Water, clear broths, and oral rehydration solutions are best. Small, frequent sips are easier to tolerate if you feel nauseated. - Avoid caffeine, alcohol, and sugary drinks, which can worsen dehydration. Diet: - Start with bland foods (such as bananas, rice, applesauce, toast) as tolerated. - Avoid dairy, fatty, or spicy foods until you feel better. Rest: - Get plenty of rest while you recover. Prevention: - Wash your hands often, especially after using the bathroom and before eating. - Avoid preparing food for others until symptoms resolve. When to Seek Medical Attention: - Signs of dehydration: dry mouth, little or no urine, dizziness, or feeling very weak. - Blood in stool or urine. - Severe abdominal pain, persistent vomiting, or high fever. - If symptoms worsen or do not improve after a few days. Follow-Up: - Attend your gastroenterology appointment as scheduled. - If you have any questions about your medications or symptoms, contact your healthcare provider. Important: Take all medications exactly as prescribed. Do not use anti-diarrheal medicines unless directed by your doctor, as they are not always safe for all types of diarrhea. Wishing you a safe and speedy recovery. Print Language: Georgian Coding Level of Care Code ED Debate Director for [facility]
[2024-12-26 19:37] VITALS: BP 171/71; PULSE 72; O2SAT 95
[2024-12-26 20:12] VITALS: BP 135/72; PULSE 78; O2SAT 99
== END 2024-12-26 20:19 | disposition home or self-care (01) ==
PROVIDERS: Family Medicine; Emergency Provider Physician Assistant; PCP Nurse Practitioner Family
DX: K52.9 Noninfective gastroenteritis and colitis, unspecified (principal); N30.00 Acute cystitis without hematuria; Z79.899 Other long term (current) drug therapy
CPT/HCPCS: 36415; 74177; 80053; 81001; 83690; 84443; 85025; 87045; 87077; 87086; 87186; 87427; 87449; 96374; 96375; 99285; J2765; J3010; J7030

== ENCOUNTER → 2025-01-12 09:26 | Outpatient (BNVA) | payer BC, SELFPAY | PROVIDERS: PCP Nurse Practitioner Family; Visit Provider Nurse Practitioner Family | DX: R19.7 Diarrhea, unspecified (principal) | CPT/HCPCS: 81003 ==

== ENCOUNTER → 2025-01-18 09:25 | Outpatient (BNVA) | payer BC, SELFPAY | PROVIDERS: PCP Nurse Practitioner Family; Visit Provider Nurse Practitioner Family | DX: R19.7 Diarrhea, unspecified (principal) | CPT/HCPCS: 83630; 83993 ==